=== PATIENT | female | born 1990 | race Caucasian/White ===

== ENCOUNTER 2018-02-24 08:32 | Emergency (ER) | payer OTHER ==
[~2018-02-24] VITALS: Ht 162.6 cm; Wt 73.0 kg
[2018-02-24 08:42] VITALS: BP 113/75
[2018-02-24] MEDS ORDERED: HYDROcodone/APAP 5/325 TABLET PO PRN (09:00)
[2018-02-24] MEDS ORDERED: HYDROcodone/APAP 5/325 TABLET ONE (09:01)
== END 2018-02-24 09:55 | disposition home or self-care (01) ==
LOC: ED 09:30
DX: M65.4 Radial styloid tenosynovitis [de Quervain] (principal); W50.2XXA Accidental twist by another person, initial encounter; Y93.89 Activity, other specified; Y92.511 Restaurant or cafe as the place of occurrence of the external cause; Y99.8 Other external cause status
CPT/HCPCS: 29125; 29260; 99284

== ENCOUNTER 2018-07-04 08:45 | Emergency (ER) | payer OTHER ==
[~2018-07-04] VITALS: Ht 160 cm; Wt 75.3 kg
--- NOTE | 2018-07-04 09:19 | NUR ---
HAY RN: PT PRSENTS TO ED WITH LUQ ABD RADIATING INTO BILATLERAL LOWER QUAD STARTING ABOUT A WEEK AGO. STATES STARTING LAST NIGHT PT DEVELOPED VOMITING AND SUDDEN ONSET OF BRIGHTER BLOOD IN STOOL. PT PINK, WARM, AND DRY. MILD AMOUNT OF DISTRESS NOTED. BREATHING REGULAR AND UNLABORED. ERMD AT BEDSIDE.
[2018-07-04] MEDS ORDERED: SODIUM CHLORIDE FLUSH 10ML SYR IVF ONE (09:30)
[2018-07-04] MEDS ORDERED: ONDANSETRON 2MG/ML, 2ML IVPush ONE (09:30)
[2018-07-04 10:02] LABS: MEAN CORPUSCULAR HEMOGLOBIN 29.8 pg (27.0-34.8); MEAN CORPUSCULAR HGB CONC 33.5 g/dL (32.4-35.8); RED BLOOD COUNT 5.33 x10^6/uL (3.82-5.3); RED CELL DISTRIBUTION WIDTH 12.8 % (9.6-15.2)
[2018-07-04 10:07] LABS: ALANINE AMINOTRANSFERASE 18 U/L (12-78); ALBUMIN 4.1 g/dL (3.4-5.0); ANION GAP 7 mmol/L (5-15); CALCIUM 8.7 mg/dL (8.5-10.1); CHLORIDE 109 mmol/L (98-107); CREATININE 0.83 mg/dL (0.55-1.02)
[2018-07-04 10:11] LABS: ALKALINE PHOSPHATASE 45 U/L (45-117); BILIRUBIN,TOTAL 1.1 mg/dL (0.2-1.0); TOTAL PROTEIN 7.3 g/dL (6.4-8.2)
[2018-07-04 10:16] LABS: BASOPHILS % (AUTO) 0 % (0-1); EOSINOPHILS # (AUTO) 0.03 x10^3/uL (0-0.4); EOSINOPHILS % (AUTO) 0 % (1-7); LYMPHOCYTES # (AUTO) 1.33 x10^3/uL (1-3.4); LYMPHOCYTES % (AUTO) 7 % (22-44); MD SCAN; MEAN PLATELET VOLUME 11.7 fL (7.4-10.4); MONOCYTES % (AUTO) 3 % (2-9); NEUTROPHILS # (AUTO) 17.88 x10^3/uL (1.8-6.8); NEUTROPHILS % (AUTO) 91 % (42-75); PLATELET COUNT 155 x10^3/uL (130-400)
[2018-07-04] MEDS ORDERED: OMNIPAQUE 350 MG/ML, 100ML BOTTLE ONE (10:31)
[2018-07-04] MEDS ORDERED: ONDANSETRON 2MG/ML, 2ML ONE (10:49)
[2018-07-04] MEDS ORDERED: CIPROFLOXACIN/PMX 400MG/200ML 200 ML IV ONE (11:00)
[2018-07-04] MEDS ORDERED: METRONIDAZOLE PMX 500MG/100ML 100 ML IV ONE (11:00)
[2018-07-04] MEDS ORDERED: CIPROFLOXACIN/PMX 400MG/200ML 200 ML ONE (11:11)
[2018-07-04] MEDS ORDERED: METRONIDAZOLE PMX 500MG/100ML 100 ML ONE (11:11)
--- NOTE | 2018-07-04 12:22 | NUR ---
BREAK RN: ASSUMED CARE OF PT WHILE PRIMARY RN AT LUNCH. IV ANTIBIOTICS HUNG. PT VITALS SIGNS STABLE.
--- NOTE | 2018-07-04 12:44 | NUR ---
REPORT FROM ANNITA LEVY, ASSUME CARE OF PT AT THIS TIME.
[2018-07-04 13:42] VITALS: BP 124/61
== END 2018-07-04 13:44 | disposition home or self-care (01) ==
LOC: ED 09:30
DX: A09 Infectious gastroenteritis and colitis, unspecified (principal); R10.84 Generalized abdominal pain
CPT/HCPCS: 36415; 74177; 80053; 83605; 83690; 84703; 85025; 96365; 96367; 96375; 99284; J0744; J2405; Q9967